=== PATIENT | male | born 1950 | race Hispanic/Latino ===

== ENCOUNTER → 2024-06-08 | Outpatient (CLI) | payer OTHER ==
[2024-06-08] MEDS: REGADENOSON 0.4 MG/5 ML PF SYG IVP ONE (12:26)
== END | disposition home or self-care (01) ==
LOC: SHCH 08:46
PROVIDERS: ATTEND Internal Medicine Cardiovascular Disease
DX: R94.31 Abnormal electrocardiogram [ECG] [EKG] (principal); R06.00 Dyspnea, unspecified
CPT/HCPCS: 78452; 93017; J2785; A9500 ×2

== ENCOUNTER 2024-07-06 08:09 | Day surgery (SDC) | payer OTHER ==
[2024-07-02 11:19] LABS: CREATININE 1.1 mg/dL (0.5-1.3); POTASSIUM 4.4 mmol/L (3.5-5.1)
[2024-07-02 11:22] LABS: BASOPHILS # (AUTO) 0.03 K/uL (0.00-0.20); BASOPHILS % (AUTO) 0.4 % (0.0-5.0); EOSINOPHILS # (AUTO) 0.06 K/uL (0.00-0.70); EOSINOPHILS % (AUTO) 0.8 % (0.0-8.0); HEMATOCRIT 40.2 % (42-54); IMMATURE GRANULOCYTE ABSOLUTE 0.03 K/uL (0-1); LYMPHOCYTES % (AUTO) 26.6 % (21.0-51.0); MEAN CORPUSCULAR HGB CONC 31.6 g/dL (32.0-36.0); MEAN CORPUSCULAR VOLUME 88.5 fL (79-99); MONOCYTES # (AUTO) 0.5 K/uL (0.1-1.0); MONOCYTES % (AUTO) 6.7 % (3.0-13.0); NEUTROPHILS # (AUTO) 4.9 K/uL (1.8-7.7); NEUTROPHILS % (AUTO) 65.1 % (40.0-77.0); PLATELET COUNT (AUTO) 203 K/uL (130-400); RED BLOOD CELL COUNT(AUTO) 4.54 MIL/uL (4.50-6.20); RED CELL DISTRIBUTION WIDTH 13.6 % (11.0-15.5); WHITE BLOOD COUNT (AUTO) 7.5 K/uL (4.8-10.8)
[2024-07-02 11:32] LABS: APPEARANCE,URINE CLEAR (CLEAR); BILIRUBIN,URINE NEGATIVE (NEGATIVE); COLOR,URINE LIGHT-YELLOW (YELLOW); GLUCOSE, URINE (UA) 150 mg/dL (NEGATIVE); KETONES,URINE NEGATIVE (NEGATIVE); LEUKOCYTE ESTERASE ,URINE NEGATIVE Leu/uL (NEGATIVE); NITRATE,URINE NEGATIVE (NEGATIVE); OCCULT BLOOD,URINE NEGATIVE (NEGATIVE); PH,URINE 5.5 (5.0-8.0); PROTEIN,URINE NEGATIVE (NEGATIVE); UROBILINOGEN,URINE 0.2 mg/dL (0.2-1.0)
[2024-07-02 11:58] LABS: ADD UA MICROSCOPIC YES
[2024-07-02 11:59] LABS: MUCUS,URINE RARE LPF (None Seen); SQUAMOUS EPITHELIAL CELL,UR RARE /HPF (0-2); WBC,URINE 0-1 /HPF (0-1)
[2024-07-02 12:05] VITALS: BP 147/80; PULSE 66; RESP 18; TEMP 97.3
[2024-07-02 12:16] LABS: B-TYPE NATRIURETIC PEPTIDE 127 pg/mL (0-100)
--- NOTE | 2024-07-02 12:22 | HMCIMG ---
CHEST 1VW HISTORY: Preop COMPARISON: None FINDINGS: A frontal projection of the chest was obtained. No acute pulmonary infiltrates is seen. The heart is normal in size. Mild degenerative changes are seen. No evidence of aortic calcification is seen. IMPRESSION: 1. No acute pulmonary infiltrate is seen.
--- NOTE | 2024-07-02 13:22 | EKG ---
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
[2024-07-02 15:36] LABS: INR 0.99 (0.85-1.15); PROTHROMBIN TIME 10.5 SEC (9.6-11.6)
[~2024-07-06] VITALS: Ht 165.1 cm; Wt 73.7 kg
[2024-07-06] VITALS (9 sets, daily range): BP systolic 107–141; BP diastolic 57–71; PULSE 60–68; RESP 10–17; TEMP 97.1–97.3
[~2024-07-06 08:09] MED LIST: AMLO-257 PO; ASPI-449 PO; ATOR10TA69 PO; METF-446 PO; METO-408 PO; SACU1TAB7 PO
[2024-07-06] MEDS: 0.9%NACL 1000ML 1,000 ML IV SCH (08:49)
[2024-07-06] MEDS ORDERED: NITROGLYCERIN 50MG VIAL ONE (12:26)
[2024-07-06] MEDS ORDERED: IOHEXOL 350 MG/ML 100ML INFUS..BTL IV ONE (12:26)
[2024-07-06] MEDS ORDERED: HEParin 10,000 UNIT/10ML (1,000 UNIT/ML) VIAL ONE (12:26)
[2024-07-06] MEDS ORDERED: HEParin-NS 1,000 UNIT/500 ML 1,000 ML IV ONE (12:26)
[2024-07-06] MEDS ORDERED: LIDOCAINE HCL 400MG/20ML VIAL ONE (12:26)
[2024-07-06] MEDS ORDERED: niCARDIpine 25MG INJ IV ONE (12:27)
[2024-07-06] MEDS ORDERED: FENTanyl CITRate PF 50 MCG/1 ML 2ML VIAL ONE (12:57)
[2024-07-06] MEDS ORDERED: MIDAZOLAM HCL 1 MG/ML 2ML VIAL ONE (12:57)
--- NOTE | 2024-07-06 14:34 | PRN ---
PROCEDURE NOTE Indications: 1. Chronic systolic congestive heart failure (LVEF: 30-35% by echo done 05/06/2024) 2. Abnormal Lexiscan stress test done on 06/08/2024 (large size, severe intensity, partially reversible perfusion defect in the basal/mid/apical in ferior and inferolateral dee. Large size, fully reversible perfusion defects seen in the anterior and anterolateral dee) 3. HTN 4. HLP Procedures: Coronary angiogram, right common femoral angiogram Introduction: After informed written consent was obtained, the patient was brought to the Catheterization Lab in the usual fasting state. Following sterile prep and drape, a time out was performed, then moderate sedation was administered, 1mg of Versed and 50mcg of Fentanyl, then 1% Lidocaine was infiltrated into the right femoral groin. Using a Modified Seldinger technique, a 6Fr Sheath was inserted into the right common femoral artery. While under fluoroscopic guidance, diagnostic coronary catheters were advanced over a wire into the central circulation where they were aspirated, flushed and placed to pressure monitoring, once the wire was removed. Coronary Angio: The left and right coronary arteries were engaged with appropriate catheters and angiography was performed under continuous pressure monitoring. Cardiac Findings: Right dominant system LM: Medium caliber vessel with 50% stenosis in the distal LM. The vessel bif urcates into the LAD and LCX. LAD: Medium caliber vessel with 70-80% stenosis in the proximal LAD. The rest of the vessel has mild luminal irregularities. CALOS 3 blood flow distally DIAG1: Small caliber vessel with 80% stenosis in the DIAG1. DIAG2: Small caliber vessel with mild luminal irregularities. LCx: Medium caliber vessel with 99% stenosis (subtotal occlusion) in the ostial LCx, 95% stenosis in the mid LCx, and 99% stenosis (subtotal occlusion) in the distal LCx. CALOS 2 blood flow distally. Ramus: Small caliber vessel with 99% stenosis (subtotal occlusion) in the proximal Ramus. OM1: Small caliber vessel with 80% stenosis in the proximal OM1. OM2: Small caliber vessel with mild luminal irregularities. RCA: Small caliber vessel with 80-90% stenosis in the proximal and mid RCA, 95% stenosis in the mid-distal RCA and 70% stenosis in the distal RCA. RPDA: Small caliber vessel with 80% stenosis in the proximal RPDA. RPLV: Small caliber vessel with 70% stenosis in the proximal RPLV. Medications given: Versed 1mg, Fentanyl 50mcg, Nitroglycerin 200mcg Coronary Intervention: None Complications: None Conscious Sedation Monitoring: Under my direct order and supervision, medication for moderate conscious sedation was administered by the nursing staff and the patients level of consciousness and physiological status was monitored by an independent trained nurse. Closure of Access Site: After the case completed the sheath was pulled and a 6Fr Angioseal was deployed in the right common femoral artery without complication. Conclusion: 1. Severe 3V+LM+branch vessel CAD 2. Ischemic cardiomyopathy 3. Chronic systolic congestive heart failure (LVEF: 30-35% by echo done 05/06/2024) 4. Abnormal Lexiscan stress test done on 06/08/[address]: [address] surgery for CABG, to be done as an outpatient 2. Continue goal directed medical therapy. 3. Groin precautions 4. 4 hours of bedrest 5. No IV fluids 6. No driving x 48 hours. 7. No strenuous activity or heavy lifting x 2 weeks. 8. Okay to discharge home once bed rest is complete and the patient's femoral access site remains soft to palpation and free of significant bleeding, bruising, or hematoma formation. 9. Please have the patient follow up with Cardiology, Dr. Víctor Limon, 1-2 weeks after discharge. VÍCTOR LIMON MD July 06, 2024 14:34
--- NOTE | 2024-07-06 14:53 | NUR ---
report: hand-off communication given to tanya franco rn
== END 2024-07-06 18:10 | disposition home or self-care (01) ==
LOC: DAH 08:09
PROVIDERS: ATTEND Internal Medicine Cardiovascular Disease
DX: R94.39 Abnormal result of other cardiovascular function study (principal); I25.10 Atherosclerotic heart disease of native coronary artery without angina pectoris; I11.0 Hypertensive heart disease with heart failure; I50.22 Chronic systolic (congestive) heart failure; E78.5 Hyperlipidemia, unspecified; I25.5 Ischemic cardiomyopathy; I42.0 Dilated cardiomyopathy; E11.9 Type 2 diabetes mellitus without complications; Z79.899 Other long term (current) drug therapy; Z79.82 Long term (current) use of aspirin; Z79.84 Long term (current) use of oral hypoglycemic drugs; Z98.890 Other specified postprocedural states
CPT/HCPCS: 80048; 83880; 85025; 85610; 85730; 81001; 36415; 71045; 93005; 93454; 82948 ×2; Q9965 ×2; C1894 ×2; C1760; J3010; J3490 ×2; J7030; J2250; J1644; Q9967; A4215; A4222; A4221; A4663; A4216; A4606; A4223 ×3; 99156; 99157